=== PATIENT | male | born 1940 | race Caucasian/White ===

== ENCOUNTER → 2024-06-27 | Outpatient (CLI) | payer MEDICARE ==
--- NOTE | 2024-06-27 13:33 | CT ---
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 Findings: The ventricles, basal cisterns and sulci over the convexities are within normal limits for the patien t's age and there is no mass effect or shift of midline structures. The ventricular system is mildly dilated but not out of proportion to the basal cisterns or sulci over the convexities and this patter n is not typical for normal pressure hydrocephalus. 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 There is no acute intra or extra-axial hemorrhage. The posterior fossa including the brainstem, fourth ventricle and cerebellar pontine angles appear no rmal. Intraorbital contents appear normal and symmetric. Visualized paranasal sinuses and mastoid air cells are well aerated. The calvarium is intact. IMPRESSION: 1. No acute bleed or mass effect. 2. Mild age-appropriate atrophy. Findings not typical for normal pressure hydrocephalus. 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 [facility], , 06/27/2024 1:30 PM
== END | disposition home or self-care (01) ==
LOC: RADCTMAIN 13:01
PROVIDERS: ATTEND Family Medicine
DX: G91.2 (Idiopathic) normal pressure hydrocephalus (principal); G31.1 Senile degeneration of brain, not elsewhere classified
CPT/HCPCS: 70450

== ENCOUNTER 2024-08-25 14:59 | Emergency (ER) | payer MEDICARE ==
[2024-08-25 15:08] VITALS: TEMP 97.4
--- NOTE | 2024-08-25 15:57 | ED ---
Extremity Problem HPI - General Chief complaint: Extremity Problem,Nontraumatic Stated complaint: Middle Finger of R Hand Issue Time Seen by Provider: 08/25/24 15:53 Source: patient Mode of arrival: ambulatory Limitations: no limitations - History of Present Illness Initial comments: 83-year-old male presenting for ingrown nail x 2 days. States he pulled a hangnail off of his right third digit and has had increasing pain on the lateral aspect of the nail since then. Denies drainage from the area. States his is a physician who told him to come in for an antibiotic. Denies fevers or difficulty with range of motion. - Related Data Previous Rx's Medication Instructions Recorded Sulfamethox-Tmp 800-160Mg [Bactrim 1 each PO Q12HR 7 Days #14 tab 08/25/24 Ds] Allergies Allergy/AdvReac Type Severity Reaction Status Date / Time No Known Allergies Allergy Verified 08/25/24 15:08 Review of Systems ROS Statement: Those systems with pertinent positive or pertinent negative responses have been documented in the HPI. ROS Other: All systems not noted in ROS Statement are negative. Past Medical History Past Medical History: No Reported History History of Any Multi-Drug Resistant Organisms: None Reported Past Surgical History: Hernia Repair Smoking Status: Never smoker Past Alcohol Use History: Occasional Past Drug Use History: None Reported General Exam Limitations: no limitations General appearance: alert, in no apparent distress Head exam: Present: atraumatic, normocephalic, normal inspection Right Forearm Wrist exam: Present: normal inspection, full ROM. Absent: tenderness, swelling Hand Wrist exam: Present: full ROM, tenderness. Absent: normal inspection (Mild erythema to the lateral aspect of the right third digit, no fluctuance, warmth, or drainage) Vascular: Present: normal capillary refill, radial pulse. Absent: vascular compromise Neurological exam: Present: alert, oriented X3 Psychiatric exam: Present: normal affect, normal mood Skin exam: Present: warm, dry, intact, normal color. Absent: rash Course Vital Signs 08/25/24 15:04 Temperature 97.4 F L Pulse Rate 79 Respiratory 16 Rate Blood Pressure 155/76 O2 Sat by Pulse 95 Oximetry Medical Decision Making - Medical Decision Making Was pt. sent in by a medical professional or institution (, PA, TABULAR TYPIST, urgent care, hospital, or fci...) When possible be specific @ -No Did you speak to anyone other than the patient for history (EMS, parent, family, police, friend...)? What history was obtained from this source @ -No Did you review nursing and triage notes (agree or disagree)? Why? @ -I reviewed and agree with nursing and triage notes Were old charts reviewed (outside hosp., previous admission, EMS record, old EKG, old radiological studies, urgent care reports/EKG's, fci records)? Report findings @ -No old charts were reviewed Differential Diagnosis (chest pain, altered mental status, abdominal pain women, abdominal pain men, vaginal bleeding, weakness, fever, dyspnea, syncope, headache, dizziness, GI bleed, back pain, seizure, CVA, palpatations, mental health, musculoskeletal)? @ -Differential Musculoskeletal Paronychia, felon, muscular strain, contusion, ligament sprain, fracture, arthritis, septic arthritis, bursitis, cellulitis, muscle spasm, nerve compression, DVT, arterial occlusion, herpes zoster, electrolyte abnormality, tumor.... This is not meant to be in all inclusive list EKG interpreted by me (3pts min.). @ -None X-rays interpreted by me (1pt min.). @ -None done CT interpreted by me (1pt min.). @ -None done U/S interpreted by me (1pt. min.). @ -None done What testing was considered but not performed or refused? (CT, X-rays, U/S, labs)? Why? @ -None What meds were considered but not given or refused? Why? @ -None Did you discuss the management of the patient with other professionals (professionals i.e. , PA, TABULAR TYPIST, lab, RT, psych nurse, social media executive, is/it project manager, teacher, branch officer, rn case manager)? Give summary @ -No Was smoking cessation discussed for >3mins.? @ -No Was critical care preformed (if so, how long)? @ -No Were there social determinants of health that impacted care today? How? (Homelessness, low income, unemployed, alcoholism, drug addiction, transportation, low edu. Level, literacy, decrease access to med. care, [facility], rehab)? @ -No Was there de-escalation of care discussed even if they declined (Discuss DNR or withdrawal of care, Hospice)? DNR status @ -No What co-morbidities impacted this encounter? (DM, HTN, Smoking, COPD, CAD, Cancer, CVA, ARF, Chemo, Hep., AIDS, mental health diagnosis, sleep apnea, morbid obesity)? @ -None Was patient admitted / discharged? Hospital course, mention meds given and route, prescriptions, significant lab abnormalities, going to OR and other pertinent info. @ -Discharge. 83-year-old male presenting for right third digit pain x 2 days. There is mild erythema to the lateral aspect of right third digit however no fluctuant masses. History and physical examination is consistent with early stages of paronychia however incision and drainage not indicated at this time as there is no fluctuant mass. Patient will be started on Bactrim and advised to return to the emergency room with worsening symptoms. Appropriate supportive care discussed. Case was discussed with my ED attending Dr. Bell. Undiagnosed new problem with uncertain prognosis? @ -No Drug Therapy requiring intensive monitoring for toxicity (Heparin, Nitro, Insulin, Cardizem)? @ -No Were any procedures done? @ -No Diagnosis/symptom? @ -Paronychia of right hand Acute, or Chronic, or Acute on Chronic? @ -Acute Uncomplicated (without systemic symptoms) or Complicated (systemic symptoms)? @ -Default Side effects of treatment? @ -No Exacerbation, Progression, or Severe Exacerbation? @ -No Poses a threat to life or bodily function? How? (Chest pain, [place], [place], pneumonia, PE, COPD, DKA, ARF, appy, cholecystitis, CVA, Diverticulitis, Homicidal, Suicidal, threat to staff... and all critical care pts) @ -No Disposition Clinical Impression: Paronychia of finger of right hand Disposition: HOME SELF-CARE Condition: Stable Instructions (If sedation given, give patient instructions): Paronychia (ED) Additional Instructions: Please use warm water soaks/warm compresses to the affected area several times a day. Take Bactrim twice daily as directed. Please return to the Emergency Department if symptoms worsen or any other concerns. Prescriptions: Sulfamethox-Tmp 800-160Mg [Bactrim Ds] 1 each PO Q12HR 7 Days #14 tab Is patient prescribed a controlled substance at d/c from ED?: No Referrals: Kelvin Caicedo Jr, [Primary Care Provider] - 1-2 days Time of Disposition: 16:03
[2024-08-25] MEDS: SULFAMETH-TMP DS STARTER PACK 2 TAB BTL PO STA (16:11)
[2024-08-25] MEDS: SULFAMETHOX-TMP 800-160MG 1 EACH TAB PO STA (16:11)
[2024-08-25 16:14] VITALS: BP 148/73; PULSE 82; RESP 20
== END 2024-08-25 16:14 | disposition home or self-care (01) ==
LOC: EC 14:59
DX: L03.011 Cellulitis of right finger (principal)
CPT/HCPCS: 99283